=== PATIENT | female | born 1955 | race Caucasian/White ===

== ENCOUNTER 2018-09-09 07:45 | Day surgery (SDC) | payer BC ==
[~2018-09-09] VITALS: Ht 167.6 cm; Wt 66.0 kg
[2018-09-09 08:11] VITALS: BP 146/84
[2018-09-09] MEDS ORDERED: LIDOCAINE-MPF 1%, 2ML ONE (08:13)
[2018-09-09] MEDS ORDERED: LACTATED RINGERS 1,000 ML IV SCH (08:14)
[2018-09-09] MEDS ORDERED: ALPR0.5T6 PO (08:19)
[2018-09-09] MEDS ORDERED: DIVA500T2 PO (08:19)
[2018-09-09] MEDS ORDERED: LEVO125T5 PO (08:19)
[2018-09-09] MEDS ORDERED: DIVA250T14 PO (08:19)
[2018-09-09] MEDS ORDERED: QUET25TA5 PO (08:19)
[2018-09-09] MEDS ORDERED: LIDOCAINE-MPF 1%, 2ML INFIL ONE (08:30)
[2018-09-09] MEDS ORDERED: TRAM50TA2 PO (08:32)
[2018-09-09] MEDS ORDERED: DIPH25CA61 PO (08:32)
[2018-09-09 08:54] LABS: MEAN CORPUSCULAR HGB CONC 30.4 g/dL (32.4-35.8); MEAN CORPUSCULAR VOLUME 65.9 fL (80-100); MEAN PLATELET VOLUME 7.5 fL (7.4-10.4); PLATELET COUNT 300 x10^3/uL (130-400); RED BLOOD COUNT 4.57 x10^6/uL (3.82-5.3); RED CELL DISTRIBUTION WIDTH 21.6 % (9.6-15.2)
[2018-09-09 08:55] LABS: ALANINE AMINOTRANSFERASE 17 U/L (12-78); ALBUMIN 3.3 g/dL (3.4-5.0); ANION GAP 5 mmol/L (5-15); CALCIUM 8.8 mg/dL (8.5-10.1); CHLORIDE 111 mmol/L (98-107); CREATININE 0.72 mg/dL (0.55-1.02); INTERNATIONAL NORMALIZED RATIO 0.99 (0.93-1.1); PROTHROMBIN TIME 10.5 Seconds (9.6-11.5)
[2018-09-09 08:58] LABS: ALKALINE PHOSPHATASE 71 U/L (45-117); BILIRUBIN,TOTAL 0.4 mg/dL (0.2-1.0); TOTAL PROTEIN 7.5 g/dL (6.4-8.2)
[2018-09-09 09:17] LABS: MD YES
[2018-09-09 09:23] LABS: EOS#(MANUAL) 0.26 x10^3/uL (0.0-0.4); EOS% (MANUAL) 4 % (1-7); LYMPH#(MANUAL) 2.34 x10^3/uL (1-3.4); LYMPHS% (MANUAL) 36 % (22-44); MONOS#(MANUAL) 0.46 x10^3/uL (0.3-2.7); MONOS% (MANUAL) 7 % (2-9); SEG#(MANUAL) 3.45 x10^3/uL (1.8-6.8); SEGS% (MANUAL) 53 % (42-75)
[2018-09-09 09:25] LABS: OVALOCYTES 1+; SCHISTOCYTES 1+
[2018-09-09 09:26] LABS: ANISOCYTOSIS 2+; MICROCYTOSIS 2+
[2018-09-09 09:27] LABS: <PLATELET ESTIMATE> ADEQUATE; <PLT MORPHOLOGY> NORMAL PLT MORPH; HYPOCHROMIA 2+
[2018-09-09] MEDS ORDERED: EPINEPHRINE 1 MG/ML, 1ML ONE (09:41)
[2018-09-09] MEDS ORDERED: BUPIVACAINE/PF 0.25% ONE (09:41)
[2018-09-09] MEDS ORDERED: FENTANYL PF 100 MCG/2ML ONE (09:51)
[2018-09-09] MEDS ORDERED: MIDAZOLAM 1 MG/ML, 2ML ONE (09:51)
[2018-09-09] MEDS ORDERED: CEFAZOLIN 1,000 MG ONE (09:54)
[2018-09-09] MEDS ORDERED: SUCCINYLCHOLINE 20 MG/ML, 10ML ONE (09:54)
[2018-09-09] MEDS ORDERED: DEXAMETHASONE 4 MG/ML, 1ML ONE (09:54)
[2018-09-09] MEDS ORDERED: ONDANSETRON 2MG/ML, 2ML ONE (09:54)
[2018-09-09] MEDS ORDERED: ROCURONIUM 10 MG/ML,10ML ONE (09:54)
[2018-09-09] MEDS ORDERED: PROPOFOL 10 MG/ML, 20ML ONE (09:54)
[2018-09-09] MEDS ORDERED: PROMETHAZINE 25 MG/ML, 1ML IV PRN (11:00)
[2018-09-09] MEDS ORDERED: ALBUTEROL SULFATE 2.5 MG/3 ML NPPB PRN (11:00)
[2018-09-09] MEDS ORDERED: hydrALAzine 20 MG/ML, 1ML IV PRN (11:00)
[2018-09-09] MEDS ORDERED: LABETALOL 5MG/ML, 20ML IV PRN (11:00)
[2018-09-09] MEDS ORDERED: FENTANYL PF 100 MCG/2ML IV PRN (11:00)
[2018-09-09] MEDS ORDERED: OXYcodone 5 MG/5 ML ORAL.SOL UDC PO PRN (11:00)
[2018-09-09] MEDS ORDERED: KETOROLAC 30 MG/1 ML IV PRN (11:00)
[2018-09-09] MEDS ORDERED: METOCLOPRAMIDE 5 MG/ML, 2ML IV PRN (11:00)
[2018-09-09] MEDS ORDERED: ONDANSETRON 2MG/ML, 2ML IVPush PRN (11:00)
[2018-09-09] MEDS ORDERED: HYDROmorphone 1 MG/ML, 1ML IV PRN (11:00)
[2018-09-09] MEDS ORDERED: MEPERIDINE/PF 25MG/0.5ML IVPush PRN (11:00)
[2018-09-09] MEDS ORDERED: OXYcodone 5 MG/5 ML ORAL.SOL UDC ONE (11:28)
[2018-09-09] MEDS ORDERED: DIPHENHYDRAMINE 50 MG/ML, 1ML ONE (11:29)
[2018-09-09] MEDS ORDERED: DIPHENHYDRAMINE 50 MG/ML, 1ML IVPush ONE (11:30)
== END 2018-09-09 13:40 | disposition home or self-care (01) ==
LOC: OUT 07:45
PROVIDERS: ATTEND Specialist
DX: D07.1 Carcinoma in situ of vulva (principal); E03.9 Hypothyroidism, unspecified; K21.9 Gastro-esophageal reflux disease without esophagitis; F31.9 Bipolar disorder, unspecified; Z86.79 Personal history of other diseases of the circulatory system; Z98.890 Other specified postprocedural states; Z72.89 Other problems related to lifestyle; Z87.891 Personal history of nicotine dependence; Z79.01 Long term (current) use of anticoagulants
CPT/HCPCS: 36415; 56620; 80053; 85025; 85610; 85730; 88309; 93005; C1729; J0171; J0330; J0690; J1100; J1200; J2250; J2405; J2704; J3010; J3490; J7120